=== PATIENT | female | born 1980 | race Caucasian/White ===

== ENCOUNTER 2017-06-01 21:06 | Emergency (ER) | payer BC ==
[~2017-06-01] VITALS: Ht 160 cm; Wt 72.8 kg
[2017-06-01] MEDS ORDERED: SOD CHLORIDE 0.9% 1,000 ML IV STA ×2 (21:11)
[2017-06-01 21:24] VITALS: Ht 160 cm; Wt 72.8 kg
--- NOTE | 2017-06-01 21:34 | ERD ---
ER Documentation Chief Complaint Chief Complaint BIB RA FOR SYNCOPE AT HOME, HEAVY PERIOD HPI This is a very pleasant 36-year-old female presents to the emergency department after she had a witnessed transient loss of consciousness while hanging clothes just prior to arrival. The patient had a complete spontaneous recovery after she had loss of postural tone that lasted for roughly 20 seconds. The patient is on day 4 of her menstrual cycle. She has a history of menorrhagia. She is complaining of mild abdominal cramping which is similar nature to her previous menstrual cycles. She has had 2 episodes where she has had similar syncope which always occurs while she is on her menstrual cycle. She denies a headache or neck pain. She denies any changes in vision. She has had no fever shaking or chills. She denies any shortness of breath at rest or exertion no recent travel. ROS All systems reviewed and are negative except as per history of present illness. Allergies Allergies: Coded Allergies: No Known Allergy (Unverified , 06/01/17) PMhx/Soc Medical and Surgical Hx: pt denies Medical Hx, pt denies Surgical Hx Hx Alcohol Use: No Hx Substance Use: No Hx Tobacco Use: No Smoking Status: Never smoker Physical Exam Vitals Vital Signs Date Time Temp Pulse Resp B/P Pulse Ox O2 Delivery O2 Flow Rate FiO2 06/01/17 21:24 98.1 82 18 109/69 100 Room Air 06/01/17 21:24 98.8 104 18 117/65 100 Physical Exam Constitutional:Well-developed. Well-nourished. HEENT:Normocephalic. Atraumatic.Pupils were equal round reactive to light. Moist mucous membranes.No tonsillar exudates. No nasal septal hematoma. No hemotympanum. Conjunctival pallor Neck: No nuchal rigidity. No lymphadenopathy. No posterior cervical spine tenderness or step-offs. Respiratory: Not using accessory muscles of respiration.Lungs were clear to auscultation bilaterally. No rhonchi. No rales. No wheezing. Cardiovascular: Regular rate regular rhythm.No murmurs. No rubs were appreciated.S1, S2 normal. Distal pulses are palpable 2+ bilaterally. GI: Abdomen was soft. Nontender. Non Distended. No pulsatile abdominal masses or bruits. No rebound. No guarding. Bowel sounds were present and normal. : Pelvic exam was performed by myself with the female nurse train engineer present. No endocervical discharge. No adnexal tenderness or adnexal masses. Cervix was closed nonfriable. Minimal amount of gross blood present within the vaginal vault as the patient is currently menstruating Muscle skeletal: Full range of motion of both the upper and lower extremities bilaterally.Normal muscle tone.No assymetrical calf tenderness or swelling. Skin: No petechia, no purpura. No lesions on the palms or the soles of the feet. No maculopapular rash. NEURO: Patient was alert, awake, orientated x3.No facial droop. Gait observed and normal with no ataxia.Speech had regular rate and rhythm. No focal neurological deficits. Result Diagram: 06/01/172118 Results 24 hrs Laboratory Tests Test 06/01/17 21:19 White Blood Count 6.910^3/ul Red Blood Count 3.7210^6/ul Hemoglobin 11.4g/dl Hematocrit 31.9% Mean Corpuscular Volume 85.8fl Mean Corpuscular Hemoglobin 30.6pg Mean Corpuscular Hemoglobin Concent 35.7g/dl Red Cell Distribution Width 12.7% Platelet Count 10204^3/UL Mean Platelet Volume 10.8fl Neutrophils % 59.5% Lymphocytes % 30.9% Monocytes % 7.6% Eosinophils % 1.4% Basophils % 0.3% Nucleated Red Blood Cells % 0.0/100WBC Neutrophils # 4.110^3/ul Lymphocytes # 2.110^3/ul Monocytes # 0.510^3/ul Eosinophils # 0.110^3/ul Basophils # 0.010^3/ul Nucleated Red Blood Cells # 0.010^3/ul Current Medications Medications (Trade) Dose Ordered Sig/Prosper Route PRN Reason Start Time Stop Time Status Last Admin Dose Admin Sodium Chloride 1,000 ml @ 1,000 mls/hr Q1H STAT IV 06/01/17 21:11 06/01/17 22:10 DC 06/01/17 21:11 Sodium Chloride (NS) 1,000 ml @ 1,000 mls/hr Q1H STAT IV 06/01/17 21:11 06/01/17 22:10 DC Procedures/MDM The patient presented to the emergency department with a transient loss of consciousness with loss of postural tone, suggestive of a syncope episode. The differential diagnosis of syncope is vast but my workup considered common benign disorders to life-threatening processes. Therefore my differential diagnosis included but was not limited to reflex-mediated syncope such as vasovagal or carotid sinus syncope from coughing, sneezing, micturition, or GI stimulation (eg, defecation). Other etiologies in my workup included orthostatic hypotension which could cause syncope from an abrupt drop in venous return to heart from volume depletion. An EKG and cardiac enzymes were obtained to rule out cardiac arrhythmias or ischemia. Cardiopulmonary disease such as valvular disease, hypertrophic cardiomyopathy, pericardial tamponade, or pulmonary embolism were considered as a factor causing the patients syncope episode. The patient had no difference in blood pressure in both arms that could suggest aortic dissection or subclavian steal syndrome. Rectal exam was negative for fecal occult blood that could suggest GI bleeding. Ancillary laboratory work was obtained to evaluate for metabolic or electrolyte abnormalities. The patient had no witnessed brief tonic movements that could suggest postictal confusion. The patient was placed on a resolution expert, continuous pulse oximetry and IV access established by nursing staff. The patient received a liter bolus of 0.9 normal saline. 12 Lead EKG tracing ordered and reviewed by myself showed: Sinus tachycardia 110 bpm and no arrhythmia. NV interval normal. QRS duration normal. No ST segment elevation No ST segment depression. No changes consistent with acute ischemia. I did obtain an ultrasound of the pelvis which showed no evidence of ovarian torsion and the ultrasound did indicate a fibroid uterus. The patient was not . There is no evidence of ectopic . I did feel the patient's symptoms are likely result of vasovagal syncope. The patient has no history of hypertrophic cardia myopathy in her family and no history of coronary artery disease. No risk factors for pulmonary embolism. The patient was discharged home in fair condition. They were instructed to return to the emergency department at any time if there was any worsening of their condition. The patient stated they would follow up with their PCP in the next 24-48 hours to initiate a suitable medication regimen under the care of their PCP as well as to allow their PCP to monitor any drug reactions. The patient was discharged home with prescriptions after they gave informed consent to the new medication. They were also fully informed by myself on the adverse effects and adverse drug interactions in order to provide adequate safeguards to prevent possible adverse reactions to medications. Departure Diagnosis: Primary Impression: Vasovagal syncope Additional Impression: Fibroid uterus Uterine leiomyoma location: unspecified location Qualified Code: D25.9 - Uterine leiomyoma, unspecified location Condition: ABDULAZIZ Sandhu Jun 01, 2017 21:34
[2017-06-01 22:28] LABS: BASOPHILS % 0.3 % (0.0-2.0); EOSINOPHILS # 0.1 10^3/ul (0.0-0.5); EOSINOPHILS % 1.4 % (0.0-7.0); HEMATOCRIT 31.9 % (37.0-47.0); HEMOGLOBIN 11.4 g/dl (12.0-16.0); LYMPHOCYTES # 2.1 10^3/ul (0.8-2.9); LYMPHOCYTES % 30.9 % (15.0-51.0); MEAN CORPUSCULAR HEMOGLOBIN 30.6 pg (29.0-33.0); MEAN CORPUSCULAR HGB CONC 35.7 g/dl (32.0-37.0); MEAN CORPUSCULAR VOLUME 85.8 fl (82.0-101.0); MEAN PLATELET VOLUME 10.8 fl (7.4-10.4); MONOCYTE # 0.5 10^3/ul (0.3-0.9); MONOCYTES % 7.6 % (0.0-11.0); NEUTROPHIL # 4.1 10^3/ul (1.6-7.5); NEUTROPHILS % 59.5 % (39.0-77.0); PLATELET COUNT 258 10^3/UL (140-415); RED BLOOD COUNT 3.72 10^6/ul (4.20-5.40); RED CELL DISTRIBUTION WIDTH 12.7 % (11.5-14.5); WHITE BLOOD COUNT 6.9 10^3/ul (4.8-10.8)
--- NOTE | 2017-06-01 22:42 | RADRPT ---
PROCEDURE: Pelvic ultrasound. CLINICAL INDICATION: Pelvic pain. TECHNIQUE: Multiple sonographic images of the pelvis were obtained utilizing a transabdominal and endovaginal technique. The images were reviewed on a PACS workstation. COMPARISON: None. FINDINGS: The uterus is visualized and measures 8.6 x 5.0 x 6.7 cm. There is a heterogeneous fibroid measuring 3.2 x 3.4 x 3.2 cm. The endometrial echo complex is homogeneous and measures 3.8 mm. There is no evidence for free fluid. The right ovary has a normal echotexture and measures 3.1 x 2. 1 x 2.0 cm. The left ovary has a normal echotexture and measures 2.1 x 1.8 x 2.3 cm. There is norm al flow to both ovaries. No adnexal masses are identified. IMPRESSION: Uterine fibroid. .Gurwinder Price MD, MD Date Time Electronically viewed and signed by .Gurwinder Price MD, MD on 06/01/2017 22:42 .T/
[2017-06-01 22:45] LABS: INR 1.04; PROTIME 13.7 Sec (11.9-14.9); PT RATIO 1.1
[2017-06-01 22:46] LABS: PARTIAL THROMBOPLASTIN TIME 28.8 Sec (25.0-35.0)
[2017-06-01 22:48] LABS: ALANINE AMINOTRANSFERASE 27 IU/L (13-69); ALBUMIN 4.1 g/dl (3.3-4.9); ALBUMIN/GLOBULIN RATIO 1.32; ALKALINE PHOSPHATASE 41 IU/L (42-121); AMYLASE 69 U/L (11-123); ANION GAP 16 (8-16); ASPARTATE AMINO TRANSFERASE 20 IU/L (15-46); BILIRUBIN,INDIRECT 0.1 mg/dl (0-1.1); BILIRUBIN,TOTAL 0.1 mg/dl (0.2-1.3); BLOOD UREA NITROGEN 11 mg/dl (7-20); CALCIUM 9.2 mg/dl (8.4-10.2); CARBON DIOXIDE 23 mmol/L (21-31); CHLORIDE 104 mmol/L (97-110); CREATINE KINASE 122 IU/L (23-200); CREATININE 0.98 mg/dl (0.44-1.00); GLUCOSE 67 mg/dl (70-220); POTASSIUM 3.8 mmol/L (3.5-5.1); SODIUM 139 mmol/L (135-144); TOTAL PROTEIN 7.2 g/dl (6.1-8.1)
[2017-06-01] MEDS ORDERED: KETOROLAC 30 MG INJ ONE (22:53)
[2017-06-01] MEDS ORDERED: KETOROLAC 30 MG INJ IV STA (22:53)
[2017-06-01 23:00] LABS: CK-MB 1.13 ng/ml (0.0-2.4)
[2017-06-01 23:06] VITALS: BP 127/71; PULSE 91; RESP 18; TEMP 98.8
[2017-06-01 23:21] LABS: TROPONIN-I < 0.012 ng/ml (0.00-0.12)
[2017-06-01 23:36] LABS: ADD UMIC YES; UR ASCORBIC ACID 40 mg/dL (NEGATIVE); UR BILIRUBIN (Dip) NEGATIVE (NEGATIVE); UR BLOOD (Dip) 3+ mg/dL (NEGATIVE); UR BUDDING YEAST FEW /HPF (NONE SEEN); UR CLARITY CLEAR (CLEAR); UR COLOR YELLOW (YELLOW); UR GLUCOSE (Dip) NEGATIVE (NEGATIVE); UR KETONES (Dip) TRACE mg/dL (NEGATIVE); UR LEUKOCYTE ESTERASE (Dip) NEGATIVE Leu/ul (NEGATIVE); UR MUCUS FEW /HPF (NONE SEEN); UR NITRITE (Dip) NEGATIVE (NEGATIVE); UR RBC 164 /HPF (0-5); UR SPECIFIC GRAVITY (Dip) 1.019 (1.003-1.030); UR TOTAL PROTEIN (Dip) 1+ mg/dl (NEGATIVE); UR UROBILINOGEN (Dip) NEGATIVE (NEGATIVE)
== END 2017-06-01 23:06 | disposition home or self-care (01) ==
LOC: E/R 21:06
DX: D25.9 Leiomyoma of uterus, unspecified (principal)
CPT/HCPCS: 36415; 76830; 76856; 80053; 81001; 82150; 82550; 82553; 83690; 84484; 85025; 85610; 85730; J1885; J7030; Z7502; 93005

== ENCOUNTER 2018-08-07 21:07 | Emergency (ER) | payer BC ==
[~2018-08-07] VITALS: Ht 160 cm; Wt 70.9 kg
[2018-08-07 21:11] VITALS: Ht 160 cm; Wt 70.9 kg
[2018-08-07] MEDS ORDERED: LEVETIRACETAM 1000 MG (PMX) 100 ML IVPB ONE (22:00)
[2018-08-07] MEDS ORDERED: SOD CHLORIDE 0.9% 1,000 ML IV ONE (22:00)
--- NOTE | 2018-08-07 22:39 | ERD ---
ER Documentation Chief Complaint Chief Complaint BIB RA39 s/p seizure vs syncope, episode lasting 25 seconds HPI 37-year-old woman here for evaluation of seizure activity occurring at home while she was sitting down watching TV. Episode was witnessed by her who was sitting next to her and it began suddenly. She had convulsive tonic- clonic seizure activity, could not breathe, became cyanotic, had frothing at the mouth. This episode lasted for about 1 minute, but she had about 10 minutes of postictal confusion and lethargy. Patient denies any preictal aura or presyncopal aura, she states this is happened about 5 times in the last 1 year and 3 months, and in the past she has bitten her tongue or the side of her mouth with these episodes. She said prior CT brain imaging which has been unremarkable. At one point after the second episode she did she did see a neurologist in his office who felt her symptoms may be due to cardiac dysrhythmia or syncope and he deferred antiepileptic therapy. She denies chest pain or palpitations, no recent fevers or chills, no headache or blurry vision. ROS All systems reviewed and are negative except as per history of present illness. Medications Home Meds Active Scripts Levetiracetam* (Keppra*) 500 Mg Tablet, 500 MG PO BID, #60 TAB Prov:JOSE ANTONIO OCONNOR MD 08/07/18 Allergies Allergies: Coded Allergies: No Known Allergy (Unverified , 06/01/17) PMhx/Soc Uterine fibroids History of Surgery: Yes () Hx Neurological Disorder: No Hx Respiratory Disorders: No Hx Cardiac Disorders: No Hx Miscellaneous Medical Probl: Yes (SYNCOPE, ANEMIA, HYPOGLYCEMIA, FIBROIDS) Hx Alcohol Use: No Hx Substance Use: No Hx Tobacco Use: No Smoking Status: Never smoker FmHx Family History: No diabetes Physical Exam Vitals Vital Signs Date Temp Pulse Resp B/P (MAP) Pulse Ox O2 O2 Flow FiO2 Time Delivery Rate 08/07/18 100 16 118/70 98 Room Air 23:00 (86) 08/07/18 98.7 130 12 133/77 100 21:11 (95) Physical Exam GENERAL: Well-developed, well-nourished, well-hydrated, in no apparent distress, looks nontoxic in appearance HEENT: Moist mucous membranes, pink conjunctiva, no cervical spine tenderness or step-off deformities, no goiter, no jaundice or icterus, extraocular movements intact without pain. No submandibular induration, and no pharyngeal erythema NEURO: Alert and oriented 3, cranial nerves II through XII intact bilaterally, pupils equal round reactive to light, no focal deficits or facial asymmetry, sensation intact distally Strength 5/5 in upper and lower extremities bilaterally CARDIAC: Regular rate and rhythm, no murmurs rubs or gallops LUNGS: Clear bilaterally no wheezing crackles or stridor ABDOMEN: Soft nontender, no guarding, no rigidity, no rebound, no psoas sign no obturator sign. Normoactive bowel sounds SKIN: Warm and dry to touch, no abrasions, contusions, or hematomas, no lacerations, no ecchymosis, no target lesions, and without ulcers EXTREMITIES: No clubbing cyanosis or edema, calves are bilaterally symmetrical, no Homans sign, no popliteal cord sign. Distal pulses equal and bilateral PSYCH: Normal affect without agitation or irritability Result Diagram: 08/07/18221408/07/182214 Results 24 hrs Laboratory Tests Test 08/07/18 22:15 08/07/18 22:22 08/07/18 22:30 White Blood Count 6.4 10^3/ul Red Blood Count 3.69 10^6/ul Hemoglobin 10.1 g/dl Hematocrit 31.1 % Mean Corpuscular Volume 84.3 fl Mean Corpuscular Hemoglobin 27.4 pg Mean Corpuscular 32.5 g/dl Hemoglobin Concent Red Cell Distribution Width 13.7 % Platelet Count 267 10^3/UL Mean Platelet Volume 9.4 fl Immature Granulocytes % 0.300 % Neutrophils % 69.4 % Lymphocytes % 21.3 % Monocytes % 7.2 % Eosinophils % 1.3 % Basophils % 0.5 % Nucleated Red Blood Cells % 0.0 /100WBC Immature Granulocytes # 0.020 10^3/ul Neutrophils # 4.4 10^3/ul Lymphocytes # 1.4 10^3/ul Monocytes # 0.5 10^3/ul Eosinophils # 0.1 10^3/ul Basophils # 0.0 10^3/ul Nucleated Red Blood Cells # 0.0 10^3/ul Sodium Level 140 mmol/L Potassium Level 3.9 mmol/L Chloride Level 100 mmol/L Carbon Dioxide Level 30 mmol/L Anion Gap 10 Blood Urea Nitrogen 11 mg/dl Creatinine 0.97 mg/dl Est Glomerular Filtrat > 60 mL/min Rate mL/min Glucose Level 100 mg/dl Calcium Level 9.4 mg/dl Total Bilirubin 0.0 mg/dl Direct Bilirubin 0.00 mg/dl Indirect Bilirubin 0.0 mg/dl Aspartate Amino 28 IU/L Transf (AST/SGOT) Alanine 32 IU/L Aminotransferase (ALT/SGPT) Alkaline Phosphatase 50 IU/L Troponin I < 0.012 ng/ml Total Protein 7.5 g/dl Albumin 4.4 g/dl Globulin 3.10 g/dl Albumin/Globulin Ratio 1.41 Lipase 83 U/L Urine Color YELLOW Urine Clarity SLIGHTLY CLOUDY Urine pH 5.0 Urine Specific Parsons 1.018 Urine Ketones TRACE mg/dL Urine Nitrite NEGATIVE mg/dL Urine Bilirubin NEGATIVE mg/dL Urine Urobilinogen NEGATIVE mg/dL Urine Leukocyte Esterase TRACE Andry/ul Urine Microscopic RBC 4 /HPF Urine Microscopic WBC 4 /HPF Urine Squamous Epithelial Cells FEW /HPF Urine Bacteria FEW /HPF Urine Mucus FEW /HPF Urine Hemoglobin NEGATIVE mg/dL Urine Glucose NEGATIVE mg/dL Urine Total Protein NEGATIVE mg/dl POC Beta HCG, Qualitative NEGATIVE Current Medications Medications Dose Sig/Prosper Start Time Status Last (Trade) Ordered Route PRN Stop Time Admin Dose Reason Admin 100 ml @ ONCE ONCE 08/07/18 DC 08/07/18 Levetiracetam 400 mls/hr IVPB 22:00 22:36 08/07/18 22:14 Sodium 1,000 ml @ Q1H ONCE 08/07/18 DC 08/07/18 Chloride 1,000 mls/hr IV 22:00 22:26 08/07/18 22:59 Procedures/MDM IV line was established patient was placed on cardiac nurse rhythm strip revealed a sinus tachycardia at 120 bpm with upright P and T waves. Patient was afebrile I administered 1 L normal saline IV and Keppra 1 g IV. EKG performed, read by me revealed a sinus tachycardia at 109 bpm, normal axis, narrow QRS complex, no concerning ST elevations or depressions noted. CBC and electrolytes were unremarkable, liver function tests normal, troponin negative, test negative, urine analysis positive for infection. Patient has had an obvious seizure today and I suspect her previous episodes of extending back to just over a year have also all been seizures, although cardiac dysrhythmia is on the differential it is unlikely. What she did not experience was a syncopal event and I doubt the preceding 4 events were syncope as well. She will have to be placed on antiepileptic therapy and I will be giving her the name and addresses of a few nearby neurologist for continued outpatient management. She has already had CT imaging of the brain in the past and I will defer further imaging to her PMD or neurologist. Differential diagnoses considered, included but not limited to acute coronary syndrome, pulmonary embolism, aortic dissection, abdominal aortic aneurysm, sepsis, stroke, meningitis, encephalitis, pneumonia, appendicitis, cholecyst itis, bowel obstruction, pyelonephritis, nephrolithiasis, cystitis, as well as metabolic, hematologic, and electrolyte abnormalities. As well as abscess, cellulitis, fractures, and dislocations. Patient feels much better at this time, and vital signs are normal, symptoms have improved. I did give strict instructions to return to the ED if symptoms continue or worsen, patient will otherwise follow-up with primary care physician. Patient understood instructions and agreed to plan. Disclaimer: Inadvertent spelling and grammatical errors are likely due to EHR/dictation software use and do not reflect on the overall quality of patient care. Also, please note that the electronic time recorded on this note does not necessarily reflect the actual time of the patient encounter. Departure Diagnosis: Primary Impression: Seizure Condition: JOSE ANTONIO Landry MD Aug 07, 2018 22:39
[2018-08-07 23:00] VITALS: BP 118/70; PULSE 100; RESP 16
[2018-08-07] MEDS ORDERED: LEVE-5 PO (23:00)
== END 2018-08-07 23:18 | disposition home or self-care (01) ==
LOC: E/R 21:07
DX: G40.909 Epilepsy, unspecified, not intractable, without status epilepticus (principal)
CPT/HCPCS: 80053; 81001; 81025; 83690; 84484; 85025; 93005; J1953; J7030; 36415; 96374